=== PATIENT | female | born 1980 | race Two or more races ===

== ENCOUNTER 2023-07-25 18:21 | Emergency (ER) | payer OTHER ==
[~2023-07-25] VITALS: Ht 165.1 cm; Wt 86.2 kg
[2023-07-25] MEDS ORDERED: KETOROLAC TROMETHAMINE 30 MG VIAL IM STA (21:21)
[2023-07-25] MEDS ORDERED: ORPHENADRINE CITRATE 30 MG/ML AMPUL IM STA (21:21)
== END 2023-07-26 00:20 | disposition home or self-care (01) ==
LOC: ER 18:22
DX: M54.89 Other dorsalgia (principal)